=== PATIENT | female | born 1985 | race Caucasian/White ===

== ENCOUNTER 2019-07-12 14:55 | Emergency (ER) | payer OTHER, SELFPAY ==
--- NOTE | ~2019-07-12 | XR_ITS ---
EXAMINATION: XR foot LT 2V DATE: 07/12/2019 15:44 INDICATION: Left foot injury. TECHNIQUE: 2 views of left foot were obtained. COMPARISON: None. FINDINGS: Bone alignment is normal. No fracture. There is mild osteoarthritis of first metatarsophala ngeal joint and some of the midfoot joints. There are enthesophytes at the posterior and plantar aspe cts of calcaneal tuberosity. IMPRESSION: 1. Mild polyarticular osteoarthritis. Reviewed, dictated and finalized at location A. [employer]
[2019-07-12 15:11] VITALS: BP 160/89; PULSE 100; RESP 18; TEMP 36.8; O2SAT 96
--- NOTE | 2019-07-12 16:06 | ED.LOWEXIN ---
HPI - Extremity Injury (Lower) General Chief Complaint: Extremity Injury, Lower Stated Complaint: pain in left foot hurts to walk Source: patient Mode of arrival: ambulatory Limitations: no limitations History of Present Illness HPI Narrative: this is a 33-year-old female that presents after 1 week history of some falling and injuring her left foot. Currently has mild pain when putting weight on her arm on her left foot. There is currently no bruising no swelling has good range of motion. The patient fell approximately 1 week ago had an x-ray order from her primary care physician but decided to come to the emergency department to obtain x-ray of her left foot. No numbness or tingling currently no swelling no redness no bruising. complaint: foot injury and fall Onset (ago): week(s) Injury: Left: foot Type of Injury: unknown Place: home Severity: mild Severity scale (1-10): 4 Relieving factors: NSAID Exacerbating factors: weight bearing Context: fall Other symptoms: none Related Data Home Medications Medication Instructions Recorded Confirmed medroxyprogesterone [Depo-Provera] 150 mg IM [id number] 04/14/19 07/12/19 sertraline [Zoloft] 50 mg PO DAILY 04/14/19 07/12/19 sertraline [Zoloft] 100 mg PO DAILY 04/14/19 07/12/19 trazodone 100 mg PO HS 04/14/19 07/12/19 Allergies Allergy/AdvReac Type Severity Reaction Status Date / Time Penicillins Allergy Hives Verified 04/14/19 18:56 pseudoephedrine AdvReac Nervousness Verified 04/14/19 18:56 [From Sudafed] sumatriptan [From Imitrex] AdvReac Nervousness Verified 04/14/19 18:56 Review of Systems Review of Systems: All systems reviewed & are unremarkable except as noted in HPI and below PMFSH Past Medical History Medical History Pancreatitis Skin infection Social History Social History Gender identity (if verbalized by the patient): Female Exam Const: General: no acute distress and alert Orientation/consciousness: patient oriented x3 HENMT: Head: normal to inspection Eyes: Conjunctivae: conjunctivae normal Pupils: Equal, round and reactive pupils present Neck: Neck: normal visual inspection Chest: Chest palpation & inspection: normal inspection of the chest Resp: Effort & Inspection: normal respiratory effort Cardio: Rate: regular rate Rhythm: regular rhythm GI: GI Palp: Yes Soft to palpation Back/Spine/Pelvis: Back: no CVA tenderness Skin: General skin exam: normal color Rashes: no rashes Neuro: General: patient oriented x3 Extrem: Other: Tenderness in the ball of her left foot with palpation otherwise no swelling no redness no bruising Course Vital Signs Vital signs: Vital Signs Temperature 36.8 C 07/12/19 15:11 Pulse Rate 100 07/12/19 15:11 Respiratory Rate 18 07/12/19 15:11 Blood Pressure 160/89 H 07/12/19 15:11 Pulse Oximetry 96 07/12/19 15:11 Temperature 36.8 C 07/12/19 15:11 Pulse Rate 100 07/12/19 15:11 Respiratory Rate 18 07/12/19 15:11 Blood Pressure 160/89 H 07/12/19 15:11 Pulse Oximetry 96 07/12/19 15:11 Critical Care Time Critical Care Time Critical Care Time: No Discharge Plan Discharge Clinical Impression: Foot sprain Qualifiers: Encounter type: initial encounter Laterality: left Qualified Code(s): S93.602A - Unspecified sprain of left foot, initial encounter Instructions: Foot Sprain (ED) Additional Instructions: Tylenol or Motrin as needed for pain and inflammation and keep follow-up with primary care physician for further evaluation and treatment. Prescriptions: New naproxen 500 mg tablet 500 mg PO BID PRN (Reason: pain) Qty: 20 RF: 0 No Action sertraline [Zoloft] 100 mg Tablet 100 mg PO DAILY RF: 0 trazodone 100 mg Tablet 100 mg PO HS RF: 0 sertraline [Zoloft] 50 mg Tablet 50 mg PO DAILY RF: 0 medroxyproges
[2019-07-12 16:13] VITALS: BP 148/82; PULSE 98; RESP 18; O2SAT 100
== END 2019-07-12 16:19 | disposition home or self-care (01) ==
PROVIDERS: Emergency Provider Emergency Medicine; PCP Family Medicine
DX: S93.602A Unspecified sprain of left foot, initial encounter (principal); W19.XXXA Unspecified fall, initial encounter
CPT/HCPCS: 73620; 99283

== ENCOUNTER 2020-01-21 01:47 | Outpatient (CLI) | payer OTHER, SELFPAY ==
[2020-01-21 18:20] LABS: SARS-CoV-2 RNA PCR Negative
== END 2020-01-21 01:48 | disposition home or self-care (01) ==
LOC: ANHCOVIDDT 01:49
PROVIDERS: PCP Family Medicine; Visit Provider Internal Medicine Gastroenterology
DX: Z01.812 Encounter for preprocedural laboratory examination (principal); Z11.59 Encounter for screening for other viral diseases
CPT/HCPCS: 87635; C9803; U0003

== ENCOUNTER 2020-01-23 01:32 | Day surgery (SDC) | payer OTHER, SELFPAY ==
[2020-01-16 13:18] VITALS: BMI 40.6
[2020-01-23] MEDS: LACTATED RINGERS 1,000 ML 150 ML IV CONT (07:08)
[2020-01-23 07:16] VITALS: BP 143/93; PULSE 78; RESP 20; TEMP 36.3; O2SAT 98; BMI 45.1
--- NOTE | 2020-01-23 07:33 | WPDANESEPPF ---
Anes - Initial Pre Proc Eval Procedure: Operation Date: 01/23/20 08:00 Proposed Procedures p Esophagogastroduodenoscopy & Colonoscopy - Gil Swanson MD Date/Time: 01/23/20 07:33 Surgeon: Gli Swanson MD Pre Op Diagnosis: abdominal pain Patient Data Age: 34 Gender: F Height: 5 ft 11 in Weight: 146.7 kg Last Vital Signs Temp 97.3 F L 01/23/20 07:16 Pulse 78 01/23/20 07:16 Resp 20 01/23/20 07:16 BP 143/93 H 01/23/20 07:16 Pulse Ox 98 01/23/20 07:16 Allergies Allergy/AdvReac Type Severity Reaction Status Date / Time Penicillins Allergy Hives Verified 01/23/20 07:11 pseudoephedrine AdvReac Nervousness Verified 01/23/20 07:11 [From Sudafed] sumatriptan [From Imitrex] AdvReac Nervousness Verified 01/23/20 07:11 Home Medications Medication Instructions Recorded Confirmed Type medroxyprogesterone [Depo-Provera] 150 mg IM [id number] 04/14/19 01/16/20 History sertraline [Zoloft] 50 mg PO DAILY 04/14/19 01/16/20 History sertraline [Zoloft] 100 mg PO DAILY 04/14/19 01/16/20 History trazodone 100 mg PO HS 04/14/19 01/16/20 History naproxen 500 mg PO BID PRN #20 tablet 07/12/19 01/16/20 Rx epinephrine [EpiPen] 0.3 mg IM ONCE PRN 01/16/20 01/16/20 History vbysstoxoukg-[id number]-mcrp-FA-vit K 1 tablet PO DAILY 01/16/20 01/16/20 History [Adults Multivitamin] omeprazole 40 mg PO DAILY 01/16/20 01/16/20 History topiramate [Topamax] 100 mg PO DAILY 01/16/20 01/16/20 History Patient hx anesthesia problems: none Family hx anesthesia problems: none PMFSH Past Medical History Medical History (Updated 12/27/19 @ 11:16 by Gil Swanson MD) Depression Morbidly obese Pancreatitis Skin infection Social History Social History Gender identity (if verbalized by the patient): Female Anes - Eval Final PreProcedure Day of Procedure 01/23/20 07:33 Patient weight: morbidly obese Heart: regular rate and rhythm Lungs: clear to auscultation Airway: Mallampati scale class II Neurological: alert and oriented Last oral intake: >/= 8 hours ASA classification: III Emergent: no Anesthetic plan: proceed Anesthesia type and monitoring: general GIVS and standard monitoring Informed Consent: The patient's anesthetic plan and its attendant risks and benefits were discussed with the patient/family/POA. Questions were solicited and answers provided to the satisfaction of the patient/family/POA.
--- NOTE | 2020-01-23 08:04 | WPDHPUPDATE1 ---
History and Physical Update Update Date/Time: 01/23/20 08:04 History and Physical has been reviewed, including an updated exam of the patient. There are NO changes in the patient's condition. Risks, benefits, and alternatives have been discussed and questions answered. Patient agrees to proceed with procedure.
[2020-01-23 08:45] VITALS: BP 147/73; PULSE 61; RESP 20; O2SAT 98
[2020-01-23 08:55] VITALS: BP 119/82; PULSE 61; RESP 20; O2SAT 100
[2020-01-23 09:05] VITALS: BP 118/84; PULSE 57; RESP 20; O2SAT 100
== END 2020-01-23 09:25 | disposition home or self-care (01) ==
PROVIDERS: PCP Family Medicine; Visit Provider Internal Medicine Gastroenterology
PROC: 0DJ08ZZ Inspection of Upper Intestinal Tract, Via Natural or Artificial Opening Endoscopic (ICD-10-PCS; CPT 43235; principal; 2020-01-23 08:00)
DX: K29.80 Duodenitis without bleeding (principal); K29.50 Unspecified chronic gastritis without bleeding; B96.81 Helicobacter pylori [H. pylori] as the cause of diseases classified elsewhere; D12.5 Benign neoplasm of sigmoid colon; K64.8 Other hemorrhoids; F32.9 Major depressive disorder, single episode, unspecified; E66.01 Morbid (severe) obesity due to excess calories; Z68.42 Body mass index [BMI] 45.0-49.9, adult
CPT/HCPCS: 45385; 43239; 88305; 88342; J2704; J7120

== ENCOUNTER 2021-03-25 19:45 | Emergency (ER) | payer OTHER, SELFPAY ==
[2021-03-25 22:40] VITALS: BP 114/67; PULSE 83; RESP 20; TEMP 36.4; O2SAT 96
--- NOTE | 2021-03-25 23:00 | ED.GENADULT ---
HPI - General Adult General Chief complaint: Headache Stated complaint: migraine, dizziness Source: patient Mode of arrival: ambulatory Limitations: no limitations History of Present Illness HPI narrative: Kelsie is a 35F with a PMH of depression, skin infections, pancreatitis, and migraine headaches that presents to the ED with a headache. She has had a bilateral pounding headache that came on slowly. It is associated with nausea. It is worse with bright lights. She denies vomiting, hearing changes, vision changes and trauma. It feels like her other headaches, just more severe. Related Data Home Medications Medication Instructions Recorded Confirmed medroxyprogesterone [Depo-Provera] 150 mg IM [id number] 04/14/19 03/25/21 sertraline [Zoloft] 200 mg PO DAILY 04/14/19 03/25/21 trazodone 200 mg PO HS 04/14/19 03/25/21 epinephrine [EpiPen] 0.3 mg IM ONCE PRN 01/16/20 03/25/21 atenolol 50 mg PO DAILY 03/25/21 03/25/21 gabapentin 600 mg PO TID 03/25/21 03/25/21 montelukast 10 mg PO DAILY 03/25/21 03/25/21 Allergies Allergy/AdvReac Type Severity Reaction Status Date / Time Penicillins Allergy Hives Verified 02/06/20 13:42 pseudoephedrine AdvReac Nervousness Verified 02/06/20 13:42 [From Sudafed] sumatriptan [From Imitrex] AdvReac Nervousness Verified 02/06/20 13:42 Review of Systems Constitutional: Constitutional: Reports no additional constitutional complaints Eyes: Eyes: Reports no additional eye complaints ENT: Reports as per HPI Cardiovascular: Cardiovascular: Reports no additional cardiovascular complaints Respiratory: Respiratory: Reports no additional respiratory complaints Gastrointestinal: Gastrointestinal: Reports no additional gastrointestinal complaints Genitourinary: Genitourinary: Reports no additional female genitourinary complaints Musculoskeletal: Musculoskeletal: Reports no additional musculoskeletal complaints Integumentary/Breasts: Skin/Breast: Reports system reviewed and no additional complaints, except as docu Neurologic: Reports system reviewed and no additional complaints, except as documented Psychiatric: Psychiatric: Reports no additional psychiatric complaints Endocrine: Endocrine: Reports no additional endocrine complaints Hematologic/Lymphatic: Hematologic/Lymphatic: Reports no additional hematologic/lymphatic complaints Allergic/Immunologic: Allergic/Immunologic: Reports no additional allergic/immunologic complaints [facility] Past Medical History Medical History (Updated 03/26/21 @ 00:00 by Don John) Depression Morbidly obese Pancreatitis Skin infection Social History Social History Gender identity (if verbalized by the patient): Female Exam Const: General: no acute distress and alert Orientation/consciousness: patient oriented x3 Limitations: No altered mental status HENMT: Head: normal to inspection Eyes: Conjunctivae: conjunctivae normal Pupils: Equal, round and reactive pupils present Neck: Neck: normal visual inspection Chest: Chest palpation & inspection: normal inspection of the chest Resp: Effort & Inspection: normal respiratory effort Auscultation: clear to auscultation bilaterally Cardio: Rate: regular rate Rhythm: regular rhythm GI: Inspection: non-distended GI Palp: Yes Soft to palpation, No Tenderness to palpation present (GI) and No Guarding due to palpation present (GI) Skin: General skin exam: normal color Rashes: no rashes Neuro: General: patient oriented x3, moves all extremities, no meningeal signs, no focal motor deficits and CN's II-XI intact bilaterally Cranial nerves: Yes Nystagmus not present Speech: normal speech Other: normal finger to nose and normal rapid alternating movements. Extrem: General: normal to inspection Psych: Mental Status: mental status grossly normal Course Course Emergency Course: Ordered Benadryl, Compazine and IV fluids. This
[2021-03-25] MEDS: SODIUM CHLORIDE 0.9% IV 1,000 ML 999 ML IV CONT (23:19)
[2021-03-25] MEDS: PROCHLORPERAZINE EDISYLATE 10 MG/2 ML VIAL IV PUSH (23:20)
[2021-03-25] MEDS: diphenhydrAMINE HCl INJ 50 MG/ML VIAL IV PUSH (23:20)
[2021-03-25 23:43] VITALS: BP 121/71; PULSE 78; RESP 18; TEMP 36.6; O2SAT 97
== END 2021-03-25 23:47 | disposition home or self-care (01) ==
PROVIDERS: Emergency Provider Family Medicine; PCP Family Medicine
DX: G43.909 Migraine, unspecified, not intractable, without status migrainosus (principal)
CPT/HCPCS: 96374; 96375; 99283; 99284; J0780; J1200; J7030

== ENCOUNTER 2021-06-01 08:51 | Outpatient (CLI) | payer OTHER, SELFPAY ==
--- NOTE | ~2021-06-01 | CT_ITS ---
EXAMINATION: CT abdomen pelvis w con DATE: 06/01/2021 10:05 INDICATION: Lower abdominal pain. TECHNIQUE: Computed tomography (CT) of the abdomen and pelvis was performed with 100 mL Omnipaque-350 intravenous contrast. Automated exposure control and iterative reconstruction technique were employe d. The dose-length product was 1717.65 mGy-cm. COMPARISON: 04/22/2019 FINDINGS: Lung bases are clear. Heart size is normal. No pericardial or pleural effusion. Liver, gallbladder, s pleen, pancreas, bilateral adrenal glands and kidneys are normal. Normal appendix. No abnormal bowel wall thickening or obstruction. Bladder, anteverted uterus and bilateral adnexa are unremarkable. No free intraperitoneal gas or fluid. No pathologically enlarged abdominal or pelvic lymphadenopathy. Ch ronic mild anterior wedging at T11-L1 with mild to moderate spondylosis in the lower thoracic spine. IMPRESSION: 1. No acute intra-abdominal/pelvic process. Reviewed, dictated and finalized at [facility]. [facility]
== END 2021-06-01 08:52 | disposition home or self-care (01) ==
LOC: CHSIMG 08:53
PROVIDERS: PCP Physician Assistant; Visit Provider Physician Assistant
DX: R10.30 Lower abdominal pain, unspecified (principal)
CPT/HCPCS: 74177; Q9967

== ENCOUNTER 2021-08-16 11:46 | Emergency (ER) | payer OTHER, SELFPAY ==
--- NOTE | ~2021-08-16 | XR_ITS ---
EXAMINATION: XR finger 1st RT min 2V DATE: 08/16/2021 12:57 INDICATION: Right thumb pain. TECHNIQUE: 4 views of right thumb were obtained. COMPARISON: None. FINDINGS: Bone alignment is normal. No fracture. There is mild osteoarthritis of first carpometacarpa l joint, metacarpophalangeal joint, and first interphalangeal joint. IMPRESSION: 1. Mild polyarticular osteoarthritis. Reviewed, dictated and finalized at location A. [employer]
[2021-08-16 12:01] LABS: Glucose Point of Care 85 mg/dl (65-105)
[2021-08-16 12:10] VITALS: BP 130/94; PULSE 88; RESP 20; TEMP 36.1; O2SAT 92
--- NOTE | 2021-08-16 12:28 | ED.GENADULT ---
HPI - General Adult General Chief complaint: Extremity Injury, Upper Stated complaint: pain in R thumb and wrist Time Seen by Provider: 08/16/21 11:48 Source: patient and RN notes reviewed Mode of arrival: ambulatory Limitations: no limitations History of Present Illness Onset (ago): week(s) (1) Location: right and upper extremity Radiation: non-radiation Severity: mild Severity scale (1-10): 4 Quality: other (no acute injury.) Pain Consistency: constant Relieving factors: medication Exacerbating factors: movement Associated symptoms: denies other symptoms Treatments prior to arrival: NSAID Related Data Home Medications Medication Instructions Recorded Confirmed medroxyprogesterone [Depo-Provera] 150 mg IM [id number] 04/14/19 03/25/21 sertraline [Zoloft] 200 mg PO DAILY 04/14/19 03/25/21 trazodone 200 mg PO HS 04/14/19 03/25/21 epinephrine [EpiPen] 0.3 mg IM ONCE PRN 01/16/20 03/25/21 atenolol 50 mg PO DAILY 03/25/21 03/25/21 gabapentin 600 mg PO TID 03/25/21 03/25/21 montelukast 10 mg PO DAILY 03/25/21 03/25/21 Allergies Allergy/AdvReac Type Severity Reaction Status Date / Time Penicillins Allergy Hives Verified 02/06/20 13:42 pseudoephedrine AdvReac Nervousness Verified 02/06/20 13:42 [From Sudafed] sumatriptan [From Imitrex] AdvReac Nervousness Verified 02/06/20 13:42 Review of Systems Review of Systems: All systems reviewed & are unremarkable except as noted in HPI and below PMFSH Past Medical History Medical History Depression Morbidly obese Pancreatitis Skin infection Tendonitis of finger Social History Social History Gender identity (if verbalized by the patient): Female Exam Const: General: no acute distress Orientation/consciousness: patient oriented x3 Limitations: no limitations HENMT: Head: normal to inspection Ears: external ears normal, TM's normal bilaterally and EAC's normal General nose exam: Normal external nose present and Normal nares present Face and sinus: sinuses nontender Mouth: Yes moist mucous membranes Eyes: Conjunctivae: conjunctivae normal Pupils: Equal, round and reactive pupils present EOM: EOMs intact bilaterally Neck: Neck: normal visual inspection and no lymphadenopathy Other: supple Chest: Chest palpation & inspection: normal inspection of the chest Resp: Effort & Inspection: normal respiratory effort Auscultation: clear to auscultation bilaterally Cardio: Rate: regular rate Rhythm: regular rhythm GI: GI Palp: Yes Soft to palpation and No Tenderness to palpation present (GI) Auscultation: normal bowel sounds : General: Yes bladder normal to palpation and Yes no CVA tenderness Back/Spine/Pelvis: Back: no CVA tenderness Skin: General skin exam: normal color Rashes: no rashes Neuro: General: patient oriented x3, moves all extremities, no meningeal signs, no focal motor deficits and CN's II-XI intact bilaterally Extrem: General: normal to inspection and no pedal edema Psych: Appearance: grossly normal and well kempt Mental Status: mental status grossly normal Affect: normal affect and Anxious affect present Attitude: cooperative Thought content: Yes Normal thought content present Course Course Emergency Course: Pt was stable in the ED. Reevaluation(s) Reevaluation #1: VSS. Date: 08/16/21 Time: 12:20 Vital Signs Vital signs: Vital Signs Temperature 36.1 C L 08/16/21 12:10 Pulse Rate 88 08/16/21 12:10 Respiratory Rate 20 08/16/21 12:10 Blood Pressure 130/94 H 08/16/21 12:10 Pulse Oximetry 92 08/16/21 12:10 Temperature 36.7 C 08/16/21 13:31 Pulse Rate 66 08/16/21 13:31 Respiratory Rate 20 08/16/21 13:31 Blood Pressure 129/95 H 08/16/21 13:31 Pulse Oximetry 98 08/16/21 13:31 Medical Decision Making Differential Diagnosis Differential Diagnosis: finger tendonitis, sprain. Vital Sig
[2021-08-16] MEDS: IBUPROFEN 400 MG TABLET 800 MG PO (12:37)
[2021-08-16 13:31] VITALS: BP 129/95; PULSE 66; RESP 20; TEMP 36.7; O2SAT 98
== END 2021-08-16 13:41 | disposition home or self-care (01) ==
PROVIDERS: Emergency Provider Emergency Medicine; PCP Physician Assistant
DX: M77.8 Other enthesopathies, not elsewhere classified (principal)
CPT/HCPCS: 73140; 82948; 99283; A4565; A9270

== ENCOUNTER 2022-05-10 19:57 | Emergency (ER) | payer OTHER, SELFPAY ==
--- NOTE | ~2022-05-10 | CT_ITS ---
EXAMINATION: CT lumbar spine wo con DATE: 05/10/2022 23:50 INDICATION: Sacrococcygeal pain. TECHNIQUE: Computed tomography (CT) of the lumbar spine was performed without intravenous contrast. A utomated exposure control and iterative reconstruction technique were employed. The dose-length produ ct was 1828.03 mGy-cm. COMPARISON: CT lumbar spine 01/22/2019 FINDINGS: Bone alignment is normal. There is mild chronic anterior wedging of T11-L1 vertebral bodies . There is mildly decreased disc height at T12-L1 and L4-L5. The following disc levels are specifical ly discussed: L1-L2: The disc does not extend beyond the endplate margin. There is mild bilateral facet joint osteo arthritis. There is no neural foraminal stenosis. There is no central canal stenosis. L2-L3: The disc does not extend beyond the endplate margin. There is mild bilateral facet joint osteo arthritis. There is no neural foraminal stenosis. There is no central canal stenosis. L3-L4: The disc does not extend beyond the endplate margin. There is moderate right and mild left fac et joint osteoarthritis. There is mild right neural foraminal stenosis. There is no central canal jacobo nosis. L4-L5: The disc is bulging. There is mild right facet joint osteoarthritis. There is mild right neura l foraminal stenosis. There is no central canal stenosis. L5-S1: The disc does not extend beyond the endplate margin. There is moderate bilateral facet joint o steoarthritis. There is no neural foraminal stenosis. There is no central canal stenosis. IMPRESSION: 1. No fracture. 2. Mild lumbar spondylosis. Reviewed, dictated and finalized at location A. [employer]
[2022-05-10 20:35] VITALS: BP 118/81; PULSE 87; RESP 18; TEMP 36.6; O2SAT 97
[2022-05-10] MEDS: IBUPROFEN 400 MG TABLET 800 MG PO (22:49)
[2022-05-10 23:26] LABS: Urine Pregnancy Test Negative
[2022-05-10 23:27] LABS: Pregnancy On Board Control Positive
--- NOTE | 2022-05-11 00:32 | ED.BACK ---
HPI - Back Pain/Injury General Chief Complaint: Back Pain/Injury Stated Complaint: injured tail bone Time Seen by Provider: 05/10/22 19:59 Source: patient and RN notes reviewed Mode of arrival: ambulatory Limitations: no limitations History of Present Illness MD elicited complaint: back injury Pertinent past history: prior back pain and recent trauma Onset (ago): day(s) (2) Timing: constant Severity: moderate Pain scale (0-10): 6 Quality: dull and aching Location: sacrum Radiation: buttocks Exacerbating factors: movement and sitting upright Relieving factors: walking Context: fall Associated symptoms: denies other symptoms Treatments prior to arrival: acetaminophen Related Data Home Medications Medication Instructions Recorded Confirmed medroxyprogesterone 150 mg/mL 150 mg IM [id number] 04/14/19 05/10/22 intramuscular suspension (Depo-Provera) sertraline 100 mg tablet (Zoloft) 200 mg PO DAILY 04/14/19 05/10/22 trazodone 100 mg tablet 200 mg PO HS 04/14/19 05/10/22 epinephrine 0.3 mg/0.3 mL 0.3 mg IM ONCE PRN Allergic 01/16/20 05/10/22 injection, auto-injector (EpiPen) Reaction atenolol 50 mg tablet 50 mg PO DAILY 03/25/21 05/10/22 gabapentin 600 mg tablet 600 mg PO TID 03/25/21 05/10/22 montelukast 10 mg tablet 10 mg PO DAILY 03/25/21 05/10/22 Allergies Allergy/AdvReac Type Severity Reaction Status Date / Time Penicillins Allergy Hives Verified 05/10/22 20:54 pseudoephedrine AdvReac Nervousness Verified 05/10/22 20:54 [From Sudafed] sumatriptan [From Imitrex] AdvReac Nervousness Verified 05/10/22 20:54 Review of Systems Review of Systems: All systems reviewed & are unremarkable except as noted in HPI and below Constitutional: Constitutional: Reports no additional constitutional complaints Eyes: Eyes: Reports no additional eye complaints ENT: Reports system reviewed and no additional complaints, except as documented Cardiovascular: Cardiovascular: Reports no additional cardiovascular complaints Respiratory: Respiratory: Reports no additional respiratory complaints Gastrointestinal: Gastrointestinal: Reports no additional gastrointestinal complaints Genitourinary: Genitourinary: Reports no additional female genitourinary complaints Musculoskeletal: Musculoskeletal: Reports no additional musculoskeletal complaints Integumentary/Breasts: Skin/Breast: Reports system reviewed and no additional complaints, except as docu Neurologic: Reports system reviewed and no additional complaints, except as documented Psychiatric: Psychiatric: Reports no additional psychiatric complaints Endocrine: Endocrine: Reports no additional endocrine complaints Hematologic/Lymphatic: Hematologic/Lymphatic: Reports no additional hematologic/lymphatic complaints Allergic/Immunologic: Allergic/Immunologic: Reports no additional allergic/immunologic complaints PMFSH Past Medical History Medical History Coccyx contusion Depression Morbidly obese Pancreatitis Skin infection Tendonitis of finger Social History Social History Gender identity (if verbalized by the patient): Female Exam Const: General: healthy appearing, no acute distress and well nourished Nutritional Appearance: well nourished Orientation/consciousness: patient oriented x3 Limitations: no limitations HENMT: Head: normal to inspection Ears: external ears normal, TM's normal bilaterally and EAC's normal Face/Nose/Sinus: Normal external nose present, Normal nares present, normal facial exam and sinuses nontender Face and sinus: normal facial exam and sinuses nontender Mouth: Yes Normal oral and palatal mucosa present and Yes moist mucous membranes Teeth and gingiva: dentition normal Throat: posterior oropharynx normal Eyes: Conjunctivae: conjunctivae normal Pupils: Equal, round and reactive pupils present EOM: EOMs intact bilat
[2022-05-11 00:44] VITALS: BP 143/86; PULSE 70; RESP 14; O2SAT 96
[2022-05-11 00:58] VITALS: BP 127/90; PULSE 70; RESP 16; TEMP 36.8; O2SAT 96
== END 2022-05-11 01:04 | disposition home or self-care (01) ==
PROVIDERS: Emergency Provider Emergency Medicine; PCP Family Medicine
DX: S30.0XXA Contusion of lower back and pelvis, initial encounter (principal)
CPT/HCPCS: 72131; 81025; 99284; A9270

== ENCOUNTER 2022-05-22 17:12 | Emergency (ER) | payer OTHER, SELFPAY ==
[2022-05-22 17:21] VITALS: BP 155/57; PULSE 88; TEMP 36.4; O2SAT 98
[2022-05-22 17:24] VITALS: BP 155/57; PULSE 84; RESP 18; TEMP 36.4; O2SAT 97
[2022-05-22] MEDS: KETOROLAC (*BKC) 60 MG/2 ML VIAL IM (17:37)
[2022-05-22] MEDS: ORPHENADRINE CITRATE 30 MG/ML 2 ML VIAL 60 MG IM (17:38)
--- NOTE | 2022-05-22 17:38 | ED.BACK ---
HPI - Back Pain/Injury General Chief Complaint: Back Pain/Injury Stated Complaint: Low back pain hard to walk Time Seen by Provider: 05/22/22 17:15 Source: patient Mode of arrival: ambulatory Limitations: no limitations History of Present Illness HPI Narrative: This is a 36-year-old female that presents with lower back pain without radiation of her pain started earlier today after she was doing some heavy lifting, lifting heavy boxes there is no dysuria no hematuria no flank pain no fever chills. MD elicited complaint: back pain Onset (ago): hour(s) Timing: constant Severity: moderate Pain scale (0-10): 6 Quality: sharp and aching Related Data Home Medications Medication Instructions Recorded Confirmed medroxyprogesterone 150 mg/mL 150 mg IM [id number] 04/14/19 05/22/22 intramuscular suspension (Depo-Provera) sertraline 100 mg tablet (Zoloft) 200 mg PO DAILY 04/14/19 05/22/22 epinephrine 0.3 mg/0.3 mL 0.3 mg IM ONCE PRN Allergic 01/16/20 05/22/22 injection, auto-injector (EpiPen) Reaction atenolol 50 mg tablet 50 mg PO DAILY 03/25/21 05/22/22 gabapentin 600 mg tablet 600 mg PO TID 03/25/21 05/22/22 montelukast 10 mg tablet 10 mg PO DAILY 03/25/21 05/22/22 bupropion HCl 300 mg 24 hr tablet, 30 mg PO DAILY 05/22/22 05/22/22 extended release buspirone 30 mg tablet 30 mg PO DAILY 05/22/22 05/22/22 citalopram 10 mg tablet 10 mg PO DAILY 05/22/22 05/22/22 Allergies Allergy/AdvReac Type Severity Reaction Status Date / Time Penicillins Allergy Hives Verified 05/22/22 17:28 pseudoephedrine AdvReac Nervousness Verified 05/22/22 17:28 [From Sudafed] sumatriptan [From Imitrex] AdvReac Nervousness Verified 05/22/22 17:28 Review of Systems Review of Systems: All systems reviewed & are unremarkable except as noted in HPI and below PMFSH Past Medical History Medical History Coccyx contusion Depression Morbidly obese Pancreatitis Skin infection Tendonitis of finger Social History Social History Gender identity (if verbalized by the patient): Female Exam Const: General: healthy appearing Nutritional Appearance: well nourished Limitations: no limitations HENMT: Head: normal to inspection Mouth: Yes Normal oral and palatal mucosa present Eyes: Conjunctivae: conjunctivae normal Pupils: Equal, round and reactive pupils present EOM: EOMs intact bilaterally Neck: Neck: normal visual inspection, no lymphadenopathy and no meningeal signs Chest: Chest palpation & inspection: normal inspection of the chest Resp: Effort & Inspection: normal respiratory effort Auscultation: clear to auscultation bilaterally Cardio: Rate: regular rate Rhythm: regular rhythm GI: GI Palp: Yes Soft to palpation Auscultation: normal bowel sounds : General: Yes bladder normal to palpation Urinary Catheter: Urinary Catheter: patent and draining Back/Spine/Pelvis: Back: no CVA tenderness Skin: General skin exam: normal color Rashes: no rashes Wounds: no wounds Neuro: General: patient oriented x3, moves all extremities, no meningeal signs and no focal motor deficits Extrem: General: normal to inspection and no clubbing, cyanosis or edema Psych: Mental Status: mental status grossly normal Affect: normal affect Course Course Emergency Course: Reassessment patient back pain has improved after dose of muscle relaxer and Toradol Vital Signs Vital signs: Vital Signs Temperature 36.4 C 05/22/22 17:21 Pulse Rate 88 05/22/22 17:21 Blood Pressure 155/57 H 05/22/22 17:21 Pulse Oximetry 98 05/22/22 17:21 Oxygen Delivery Room Air 05/22/22 17:21 Temperature 36.4 C 05/22/22 17:24 Pulse Rate 84 05/22/22 17:24 Respiratory Rate 18 05/22/22 17:24 Blood Pressure 155/57 H 05/22/22 17:24 Pulse Oximetry 97 05/22/22 17:24 Oxygen Delivery Room Air 05/22/22 17:24 Critic
[2022-05-22 18:03] VITALS: BP 155/57; PULSE 84; RESP 18; TEMP 36.4; O2SAT 97
== END 2022-05-22 18:05 | disposition home or self-care (01) ==
PROVIDERS: Emergency Provider Emergency Medicine; PCP Family Medicine
DX: S39.012A Strain of muscle, fascia and tendon of lower back, initial encounter (principal); X50.0XXA Overexertion from strenuous movement or load, initial encounter
CPT/HCPCS: 96372; 99284; J1885; J2360

== ENCOUNTER 2022-07-09 16:28 | Emergency (ER) | payer OTHER, SELFPAY ==
--- NOTE | 2022-07-09 16:31 | ED.EXTPRO ---
HPI - Extremity Problem General Chief complaint: Extremity Problem,Nontraumatic Stated complaint: shoulder pain Time Seen by Provider: 07/09/22 16:29 Source: patient and RN notes reviewed Mode of arrival: ambulatory Limitations: no limitations History of Present Illness HPI Narrative: patient states that she started having some right shoulder pain about 2 days ago. She thinks she might have slept wrong on it. But it hurts when she does range of motion. She took 800 mg of Motrin did not seem to help. Complaint: extremity pain Onset (ago): day(s) (2) Pain Consistency: constant Location: right and upper extremity ( shoulder) Quality: aching and dull Radiation: none Relieving factors: rest Exacerbating factors: range of motion Associated symptoms: denies other symptoms Related Data Home Medications Medication Instructions Recorded Confirmed medroxyprogesterone 150 mg/mL 150 mg IM [id number] 04/14/19 07/09/22 intramuscular suspension (Depo-Provera) epinephrine 0.3 mg/0.3 mL 0.3 mg IM ONCE PRN Allergic 01/16/20 07/09/22 injection, auto-injector (EpiPen) Reaction atenolol 50 mg tablet 50 mg PO DAILY 03/25/21 05/22/22 gabapentin 600 mg tablet 600 mg PO TID 03/25/21 07/09/22 bupropion HCl 300 mg 24 hr tablet, 30 mg PO DAILY 05/22/22 05/22/22 extended release citalopram 10 mg tablet 10 mg PO DAILY 05/22/22 07/09/22 Allergies Allergy/AdvReac Type Severity Reaction Status Date / Time Penicillins Allergy Hives Verified 05/22/22 17:28 pseudoephedrine AdvReac Nervousness Verified 05/22/22 17:28 [From Sudafed] sumatriptan [From Imitrex] AdvReac Nervousness Verified 05/22/22 17:28 Review of Systems Review of Systems: All systems reviewed & are unremarkable except as noted in HPI and below PMFSH Past Medical History Medical History Coccyx contusion Depression Morbidly obese Pancreatitis Skin infection Tendonitis of finger Social History Social History (Updated 07/09/22 @ 16:32 by Aime Mcdaniel MD) Smoking status: Never smoker Gender identity (if verbalized by the patient): Female Exam Const: General: healthy appearing, no acute distress and alert Nutritional Appearance: well nourished and obese morbidly obese Orientation/consciousness: patient oriented x3 Limitations: no limitations Other: Female tech in room during examination. HENMT: Head: normal to inspection Ears: external ears normal Eyes: Conjunctivae: conjunctivae normal Pupils: Equal, round and reactive pupils present EOM: EOMs intact bilaterally Neck: Neck: normal visual inspection Resp: Effort & Inspection: normal respiratory effort Auscultation: clear to auscultation bilaterally Cardio: Rate: regular rate Rhythm: regular rhythm GI: GI Palp: Yes Soft to palpation and No Tenderness to palpation present (GI) Auscultation: normal bowel sounds Back/Spine/Pelvis: Cervical Spine: cervical ROM normal Thoracic/Lumbar Spine: thoraco-lumbar ROM normal Skin: General skin exam: normal color Rashes: no rashes Neuro: General: patient oriented x3, moves all extremities, no focal motor deficits and CN's II-XI intact bilaterally Speech: normal speech Gait exam (Neuro): Normal gait present Extrem: General: normal exam except as noted and no clubbing, cyanosis or edema Right upper extremity: shoulder/upper arm tenderness over the subacromial bursa ( Moderate); not of the A-C joint and not of the proximal humerus and abnormal ROM pain with active ROM in ABduction and in flexion; no pain with passive ROM Psych: Appearance: disheveled Mental Status: mental status grossly normal Affect: normal affect Attitude: cooperative Course Course Emergency Course: I discussed the diagnosis with the patient and offered her a injection into her subacromial bursa and she declined. She asked me for opiates for this pain and I told her absolutely not that opiates are not indicated for bu
[2022-07-09 16:39] VITALS: BP 114/71; PULSE 78; RESP 14; TEMP 36.3; O2SAT 98
--- NOTE | 2022-07-09 16:42 | PC.NURSE ---
In room with Dr. Mcdaniel during physical exam
== END 2022-07-09 16:52 | disposition home or self-care (01) ==
LOC: CHSED 16:45
PROVIDERS: Emergency Provider Emergency Medicine; PCP Family Medicine
DX: M75.51 Bursitis of right shoulder (principal)
CPT/HCPCS: 99283

== ENCOUNTER 2022-08-14 08:25 | Outpatient (CLI) | payer OTHER, SELFPAY | END 2022-08-14 08:26 | disposition home or self-care (01) | LOC: CHSIMG 08:26 | PROVIDERS: PCP Physician Assistant; Visit Provider Physician Assistant | DX: R51.9 Headache, unspecified (principal) | CPT/HCPCS: 99199 ==

== ENCOUNTER 2022-08-23 17:05 | Emergency (ER) | payer OTHER, SELFPAY ==
[2022-08-23 17:07] VITALS: BP 137/75; PULSE 74; RESP 18; TEMP 36.4; O2SAT 99
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
--- NOTE | 2022-08-23 17:14 | PC.NURSE ---
ER provider at pt bedside for evaluation and plan of care.
[2022-08-23 17:45] LABS: Basophils Absolute Auto 0.04 K/mm3 (0.00-0.10); Basophils Percent Auto 0.5 % (0.0-1.0); Eosinophils Absolute Auto 0.16 K/mm3 (0.02-0.50); Eosinophils Percent Auto 1.9 % (1.0-6.0); Hematocrit 39.1 % (35.0-49.0); Hemoglobin 12.5 g/dL (12.0-15.0); Immature Granulocyte Absolute 0.04 K/mm3 (0.00-0.00); Immature Granulocyte Percent A 0.5 % (0.0-0.0); Lymphocytes Percent Auto 23.6 % (18.0-42.0); Mean Corpuscular Hemoglobin 28.5 pg (27.0-31.0); Mean Corpuscular Volume 89.1 fL (78.0-102.0); Mean Platelet Volume 8.1 fl (9.2-11.8); Monocytes Absolute Auto 0.79 K/mm3 (0.10-0.90); Monocytes Percent Auto 9.3 % (2.0-11.0); Neutrophils Absolute Auto 5.5 K/mm3 (1.7-7.2); Neutrophils Percent Auto 64.2 % (50.0-70.0); Platelet Count Result 402 K/mm3 (150-420); Red Blood Count 4.39 M/mm3 (4.20-5.40); Red Cell Distribution Width 14.6 % (11.6-14.4); White Blood Count 8.5 K/mm3 (4.8-10.8)
[2022-08-23 18:01] LABS: Prothrombin Time 10.9 Seconds (9.50-12.10)
[2022-08-23 18:08] LABS: Lactic Acid Reflex 1.1 mmol/L (0.4-2.0)
[2022-08-23 18:11] LABS: Alanine Aminotransferase 14 U/L (14-59); Albumin Level 3.4 g/dL (3.4-5.0); Alkaline Phosphatase 66 U/L (46-116); Anion Gap 8 mmol/L (8-16); Aspartate Amino Transferase 14 U/L (15-37); Bilirubin,Total 0.1 mg/dL (0.00-1.00); Blood Urea Nitrogen 10 mg/dL (7-18); Calcium 8.9 mg/dL (8.5-10.1); Carbon Dioxide 29 mmol/L (21-32); Chloride 105 mmol/L (98-108); Estimated CRCL calculation 109 ml/min; Estimated Glomerular Filt Rate 59; Glucose 87 mg/dL (70-99); Lipase 17 U/L (16-77); Osmolality Calculated 292 mOsm/kg (285-295); Potassium 3.1 mmol/L (3.5-5.1); Sodium 142 mmol/L (136-145); Total Protein 7.5 g/dL (6.4-8.2); Troponin I 4.6 ng/L (0.00-60.4)
[2022-08-23 18:20] LABS: Appearance Urine Clear (Clear); Bilirubin Urine Negative (Negative); Blood Urine Trace-Intact (Negative); Color Urine Light Yellow (Yellow); Glucose Urine UA Negative (Negative); Ketones Urine Negative (Negative); Leukocyte Esterase Ur 1+ LEU/UL (Negative); Nitrate Urine Negative (Negative); Protein Urine Negative (Negative); Urobilinogen Urine 0.2 mg/dL (0.2-1.0)
[2022-08-23 18:23] LABS: Pregnancy On Board Control Positive; Urine Pregnancy Test Negative
[2022-08-23 18:27] LABS: Add Urine Microscopic? YES; Bacteria Urine 1+ /hpf; RBC Urine 0-2 /hpf (0-2); Squamous Epithelial Cell Urine Moderate /hpf (Few)
[2022-08-23] MEDS: POTASSIUM CHLORIDE 20 MEQ TABLET PO (19:30)
[2022-08-23] MEDS: HYDROcodone/acetaminophen (*CRX) 5-325 MG TABLET 1 TAB PO (19:30)
[2022-08-23] MEDS: CIPROFLOXACIN 500 MG TAB (19:38)
[2022-08-23 19:40] VITALS: BP 119/91; PULSE 68; RESP 18; TEMP 36.8; O2SAT 99
--- NOTE | 2022-08-25 12:08 | PC.NURSE ---
FINAL URINE RESULTS: NO GROWTH. NO ACTION NEEDED.
== END 2022-08-23 19:50 | disposition home or self-care (01) ==
PROVIDERS: Emergency Provider Internal Medicine Critical Care Medicine; PCP Family Medicine
DX: N39.0 Urinary tract infection, site not specified (principal); R10.31 Right lower quadrant pain; G89.29 Other chronic pain
CPT/HCPCS: 36415; 80053; 81001; 81025; 83605; 83690; 84484; 85025; 85610; 87086; 99283; A9270

== ENCOUNTER 2022-09-07 12:26 | Outpatient (CLI) | payer OTHER, SELFPAY ==
--- NOTE | ~2022-09-07 | CT_ITS ---
EXAMINATION: CT brain wo con DATE: 09/07/2022 13:04 INDICATION: Frequent headaches, posterior to frontal area. No known injury. TECHNIQUE: Computed tomography (CT) of the head was performed without intravenous contrast. The mA wa s adjusted according to patient size. Iterative reconstruction technique was employed. Exam dose: 60 5.33 mGy-cm total exam DLP. COMPARISON: None FINDINGS: No intracranial mass lesion or hemorrhage or cerebrovascular accident. No midline shift or mass effect effect. Normal ventricular size. Normal byrnes-white matter differentiation. No subdural or epidural hematoma. Prominent polyp or mucous retention cyst of the right maxillary sinus. The paranasal sinuses and mast oid air cells are otherwise unremarkable. No fracture or bone destruction of the cranial vault. IMPRESSION: No skull fracture or intracranial abnormality Prominent polyp or mucous retention cyst of right maxillary sinus Reviewed, dictated and finalized at [facility] Reviewed, dictated and finalized at [facility].
== END 2022-09-07 12:27 | disposition home or self-care (01) ==
LOC: CHSIMG 12:27
PROVIDERS: PCP Family Medicine; Visit Provider Physician Assistant
DX: R51.9 Headache, unspecified (principal)
CPT/HCPCS: 70450

== ENCOUNTER 2022-10-17 11:31 | Emergency (ER) | payer OTHER, SELFPAY ==
[2022-10-17 11:35] VITALS: BP 132/80; PULSE 91; RESP 20; TEMP 36.6; O2SAT 97
--- NOTE | 2022-10-17 11:45 | ED.GENADULT ---
HPI - General Adult General Chief complaint: Skin/Abscess/Foreign Body Stated complaint: left side boil under arm Time Seen by Provider: 10/17/22 11:38 History of Present Illness HPI narrative: Kelsie is a 37F with a PMH of mood disorder, morbid obesity and frequent skin infections that presented to the ED with a boil in her left armpit. She first noticed it a few days ago and it has become worse. OTC meds do not help with pain. No fevers or systemic symptoms. Related Data Home Medications Medication Instructions Recorded Confirmed epinephrine 0.3 mg/0.3 mL 0.3 mg IM ONCE PRN Allergic 01/16/20 10/17/22 injection, auto-injector (EpiPen) Reaction atenolol 50 mg tablet 50 mg PO DAILY 03/25/21 10/17/22 gabapentin 600 mg tablet 600 mg PO TID 03/25/21 10/17/22 bupropion HCl 300 mg 24 hr tablet, 30 mg PO DAILY 05/22/22 10/17/22 extended release Nexplanon subdermal 08/23/22 buspirone 30 mg tablet 30 mg PO BID 10/17/22 10/17/22 citalopram 40 mg tablet 40 mg PO DAILY 10/17/22 10/17/22 hydroxyzine HCl 50 mg tablet 50 mg PO TID 10/17/22 10/17/22 Allergies Allergy/AdvReac Type Severity Reaction Status Date / Time Penicillins Allergy Hives Verified 10/17/22 11:45 pseudoephedrine AdvReac Nervousness Verified 10/17/22 11:45 [From Sudafed] sumatriptan [From Imitrex] AdvReac Nervousness Verified 10/17/22 11:45 Review of Systems Review of Systems: All systems reviewed & are unremarkable except as noted in HPI and below PMFSH Past Medical History Medical History Chronic abdominal pain Coccyx contusion Colonic polyp Depression Morbidly obese Normal esophagogastroduodenoscopy (EGD) Pancreatitis Skin infection Tendonitis of finger Social History Social History Smoking status: Never smoker Gender identity (if verbalized by the patient): Female Exam Const: General: healthy appearing and no acute distress Nutritional Appearance: well nourished Orientation/consciousness: patient oriented x3 Limitations: no limitations HENMT: Head: normal to inspection Ears: external ears normal Face/Nose/Sinus: Normal external nose present Eyes: Conjunctivae: conjunctivae normal Pupils: Equal, round and reactive pupils present EOM: EOMs intact bilaterally Neck: Neck: normal visual inspection Chest: Chest palpation & inspection: normal inspection of the chest Resp: Effort & Inspection: normal respiratory effort Cardio: Rate: regular rate Back/Spine/Pelvis: Back: no CVA tenderness Skin: Other: 2 cm tender nodule in the left axilla with induration and fluctuance Neuro: General: patient oriented x3 and moves all extremities Extrem: General: normal to inspection Psych: Mental Status: mental status grossly normal Procedures Abscess I/D other: Date of Incision: 10/17/22 Side (if applicable): left Local Anesthetic: lidocaine 1% and with epi Amount of anesthesia used (mL): 1.5 Technique: incised with #11 blade Amount of fluid expressed (mL): 1 Packing used?: none I&D Results: Pus and Blood Abcess I&D Additional Comments: left axilla incised as above Discharge Plan Discharge Clinical Impression: Abscess Patient Disposition: Home, Self-Care Condition: Stable Instructions: Abscess (ED) Prescriptions: New sulfamethoxazole-trimethoprim [Bactrim DS] 800-160 mg tablet 1 tablet PO Q12H Qty: 10 0RF No Action gabapentin 600 mg tablet 600 mg PO TID atenolol 50 mg tablet 50 mg PO DAILY bupropion HCl 300 mg tablet extended release 24 hr 30 mg PO DAILY citalopram 40 mg tablet 40 mg PO DAILY hydroxyzine HCl 50 mg tablet 50 mg PO TID buspirone 30 mg tablet 30 mg PO BID Nexplanon subdermal epinephrine [EpiPen] 0.3 mg/0.3 mL Auto-Injector 0.3 mg IM ONCE PRN (Reason
[2022-10-17] MEDS: LIDO 1%/EPINEPHRINE 1:100,000 20 ML VIAL INFILTRATE (11:56)
[2022-10-17] MEDS: SULFAMETHOXAZOLE/TRIMETHOPRIM 800/160 MG DS TABLET 1 TAB PO (11:56)
== END 2022-10-17 12:15 | disposition home or self-care (01) ==
PROVIDERS: Emergency Provider Family Medicine; PCP Family Medicine
DX: L02.412 Cutaneous abscess of left axilla (principal); F41.9 Anxiety disorder, unspecified
CPT/HCPCS: 10060; 99283; A9270

== ENCOUNTER 2022-10-23 19:12 | Emergency (ER) | payer OTHER, SELFPAY ==
[2022-10-23 19:13] VITALS: BP 122/86; PULSE 89; O2SAT 99
--- NOTE | 2022-10-23 19:20 | ED.WOUNDLAC ---
HPI - Wound/Laceration General Stated Complaint: Boil Source: patient Mode of arrival: ambulatory Limitations: no limitations History of Present Illness HPI narrative: this is a 37-year-old female with some history of abscess under her left axilla was seen in the emergency department 2 to 3 days ago and had it lanced and drained was started on antibiotic, followed up with her primary and advised her to take some pain medication currently is going to have a GI procedure and is unable to take NSAIDs. Currently she is here because of pain and discomfort the area under the left axilla is nonfluctuant with no drainage no fever chills no shortness of breath. Onset (ago): day(s) Location: other Extremity Location: Left: arm ( Red area under the left axilla) Place: home Related Data Home Medications Medication Instructions Recorded Confirmed epinephrine 0.3 mg/0.3 mL 0.3 mg IM ONCE PRN Allergic 01/16/20 10/17/22 injection, auto-injector (EpiPen) Reaction atenolol 50 mg tablet 50 mg PO DAILY 03/25/21 10/17/22 gabapentin 600 mg tablet 600 mg PO TID 03/25/21 10/17/22 bupropion HCl 300 mg 24 hr tablet, 30 mg PO DAILY 05/22/22 10/17/22 extended release Nexplanon subdermal 08/23/22 buspirone 30 mg tablet 30 mg PO BID 10/17/22 10/17/22 citalopram 40 mg tablet 40 mg PO DAILY 10/17/22 10/17/22 hydroxyzine HCl 50 mg tablet 50 mg PO TID 10/17/22 10/17/22 Allergies Allergy/AdvReac Type Severity Reaction Status Date / Time Penicillins Allergy Hives Verified 10/17/22 11:45 pseudoephedrine AdvReac Nervousness Verified 10/17/22 11:45 [From Sudafed] sumatriptan [From Imitrex] AdvReac Nervousness Verified 10/17/22 11:45 Review of Systems Review of Systems: All systems reviewed & are unremarkable except as noted in HPI and below PMFSH Past Medical History Medical History Chronic abdominal pain Coccyx contusion Colonic polyp Depression Morbidly obese Normal esophagogastroduodenoscopy (EGD) Pancreatitis Skin infection Tendonitis of finger Social History Social History Smoking status: Never smoker Gender identity (if verbalized by the patient): Female Exam Const: General: healthy appearing Nutritional Appearance: well nourished Orientation/consciousness: patient oriented x3 Limitations: no limitations HENMT: Head: normal to inspection Ears: external ears normal Eyes: Conjunctivae: conjunctivae normal Pupils: Equal, round and reactive pupils present Neck: Neck: normal visual inspection Chest: Chest palpation & inspection: normal inspection of the chest Resp: Effort & Inspection: normal respiratory effort Auscultation: clear to auscultation bilaterally Cardio: Rate: regular rate Rhythm: regular rhythm GI: GI Palp: Yes Soft to palpation Skin: Other: Redness and nonfluctuant area with no drainage under her left axilla Neuro: General: patient oriented x3 Cranial nerves: Yes Nystagmus not present Extrem: General: normal to inspection Psych: Mental Status: mental status grossly normal Affect: normal affect Course Course Emergency Course: patient having a GI proceed and advised not to take any NSAIDs, will send patient home with a prescription for pain medication and advised patient to continue with her current antibiotics. Vital Signs Vital signs: Vital Signs Pulse Rate 89 10/23/22 19:13 Blood Pressure 122/86 10/23/22 19:13 Pulse Oximetry 99 10/23/22 19:13 Oxygen Delivery Room Air 10/23/22 19:13 Pulse Rate 89 10/23/22 19:13 Blood Pressure 122/86 10/23/22 19:13 Pulse Oximetry 99 10/23/22 19:13 Oxygen Delivery Room Air 10/23/22 19:13 Critical Care Time Critical Care Time Critical Care Time: No Discharge Plan Discharge Clinical Impression: Skin infection Patient Disposition: Home, Self-Care Condition: Stable Instruction
--- NOTE | 2022-10-24 09:00 | PC.NURSE ---
[facility] called and states they canceled the prescription that was escribed to them and state it was already filled in [place] yesterday for the same medication. They state they no longer will fill narcotics for this patient at their location.
== END 2022-10-23 19:43 | disposition home or self-care (01) ==
PROVIDERS: Emergency Provider Emergency Medicine; PCP Family Medicine
DX: L08.89 Other specified local infections of the skin and subcutaneous tissue (principal)
CPT/HCPCS: 99283

== ENCOUNTER 2023-04-21 08:53 | Outpatient (CLI) | payer OTHER, SELFPAY ==
--- NOTE | ~2023-04-21 | CT_ITS ---
EXAMINATION: CT abdomen pelvis wo con DATE: 04/21/2023 09:17 INDICATION: Right flank pain TECHNIQUE: Computed tomography (CT) of the abdomen and pelvis was performed without intravenous contr ast. The dose-length product (DLP) was 1679.97 mGy-cm. Automated exposure control and iterative recon struction technique were employed. COMPARISON: 06/01/2021 FINDINGS: Minimal dependent atelectasis is present in the lung bases. The heart size is normal. The l iver, spleen, pancreas, gallbladder, and adrenal glands are normal. The kidneys are unremarkable. No stones are identified in the kidneys, ureters, or bladder. No hydronephrosis or hydroureter. The appe ndix is normal. No pathologically enlarged abdominal or pelvic lymph nodes are identified. No free in traperitoneal gas or evidence of bowel obstruction. There is mild anterior wedging of lower thoracic and upper lumbar vertebral bodies, likely physiologic. IMPRESSION: 1. No CT correlate for the patient's symptoms. Reviewed, dictated and finalized at [facility] [employer]ING MAINTENA[employer]CE TECHNICIAN
== END 2023-04-21 08:54 | disposition home or self-care (01) ==
LOC: CHSIMG 08:54
PROVIDERS: PCP Family Medicine; Visit Provider Physician Assistant
DX: R10.9 Unspecified abdominal pain (principal)
CPT/HCPCS: 74176

== ENCOUNTER 2023-07-17 13:33 | Emergency (ER) | payer OTHER, SELFPAY ==
--- NOTE | 2023-07-17 13:39 | ED.BACK ---
HPI - Back Pain/Injury General Chief Complaint: Back Pain/Injury Stated Complaint: lower back pain Time Seen by Provider: 07/17/23 13:34 Source: patient Mode of arrival: ambulatory Limitations: no limitations History of Present Illness HPI Narrative: patient is a 37-year-old female with bilateral lower lumbar pain the past few days. No injury. She has been drinking lots of water. No history of kidney stones. MD elicited complaint: back pain Onset (ago): day(s) (3) Timing: constant Severity: moderate Pain scale (0-10): 5 Similar Symptoms Previously: No Quality: sharp Location: lumbar spine Radiation: none Exacerbating factors: movement Relieving factors: immobilization Context: turning/twisting and bending Associated symptoms: denies other symptoms Work related injury: No Related Data Home Medications Medication Instructions Recorded Confirmed epinephrine 0.3 mg/0.3 mL 0.3 mg IM ONCE PRN Allergic 01/16/20 10/17/22 injection, auto-injector (EpiPen) Reaction atenolol 50 mg tablet 50 mg PO DAILY 03/25/21 10/17/22 gabapentin 600 mg tablet 600 mg PO TID 03/25/21 10/17/22 bupropion HCl 300 mg 24 hr tablet, 30 mg PO DAILY 05/22/22 10/17/22 extended release Nexplanon subdermal 08/23/22 buspirone 30 mg tablet 30 mg PO BID 10/17/22 10/17/22 citalopram 40 mg tablet 40 mg PO DAILY 10/17/22 10/17/22 hydroxyzine HCl 50 mg tablet 50 mg PO TID 10/17/22 10/17/22 Allergies Allergy/AdvReac Type Severity Reaction Status Date / Time Penicillins Allergy Hives Verified 10/17/22 11:45 nitrofurantoin AdvReac Unknown Verified 10/23/22 19:31 [From Macrobid] pseudoephedrine AdvReac Nervousness Verified 10/17/22 11:45 [From Sudafed] sumatriptan [From Imitrex] AdvReac Nervousness Verified 10/17/22 11:45 Review of Systems Review of Systems: All systems reviewed & are unremarkable except as noted in HPI and below Constitutional: Constitutional: Reports no additional constitutional complaints Eyes: Eyes: Reports no additional eye complaints ENT: Reports system reviewed and no additional complaints, except as documented Cardiovascular: Cardiovascular: Reports no additional cardiovascular complaints Respiratory: Respiratory: Reports no additional respiratory complaints Gastrointestinal: Gastrointestinal: Reports no additional gastrointestinal complaints Genitourinary: Genitourinary: Reports no additional female genitourinary complaints Musculoskeletal: Musculoskeletal: Reports no additional musculoskeletal complaints Integumentary/Breasts: Skin/Breast: Reports system reviewed and no additional complaints, except as docu Neurologic: Reports system reviewed and no additional complaints, except as documented Psychiatric: Psychiatric: Reports no additional psychiatric complaints Endocrine: Endocrine: Reports no additional endocrine complaints Hematologic/Lymphatic: Hematologic/Lymphatic: Reports no additional hematologic/lymphatic complaints Allergic/Immunologic: Allergic/Immunologic: Reports no additional allergic/immunologic complaints PMFSH Past Medical History Medical History Chronic abdominal pain Coccyx contusion Colonic polyp Depression Morbidly obese Normal esophagogastroduodenoscopy (EGD) Pancreatitis Skin infection Tendonitis of finger Social History Social History Smoking status: Never smoker Gender identity (if verbalized by the patient): Female Exam Const: General: healthy appearing Nutritional Appearance: well nourished Orientation/consciousness: patient oriented x3 HENMT: Head: normal to inspection Ears: external ears normal Face/Nose/Sinus: Normal external nose present Eyes: Conjunctivae: conjunctivae normal Pupils: Equal, round and reactive pupils present EOM: EOMs intact bilaterally Neck: Neck: normal visual inspection Chest: Chest palpation & inspection: nor
[2023-07-17 13:40] VITALS: BP 174/90; PULSE 96; RESP 20; TEMP 36.7; O2SAT 96
[2023-07-17 13:51] LABS: Appearance Urine Clear (Clear); Bilirubin Urine Negative (Negative); Blood Urine Trace-Intact (Negative); Color Urine Light Yellow (Yellow); Glucose Urine UA Negative (Negative); Ketones Urine Negative (Negative); Leukocyte Esterase Ur Negative LEU/UL (Negative); Nitrate Urine Negative (Negative); Protein Urine Negative (Negative); Specific Grav Ur <= 1.005 (1.010-1.020); Urobilinogen Urine 0.2 mg/dL (0.2-1.0)
[2023-07-17 13:56] LABS: Add Urine Microscopic? YES; RBC Urine None seen /hpf (0-2)
[2023-07-17 13:57] LABS: Pregnancy On Board Control Positive; Urine Pregnancy Test Negative
[2023-07-17 14:23] VITALS: BP 176/96; PULSE 101; RESP 20; O2SAT 98
== END 2023-07-17 14:26 | disposition home or self-care (01) ==
PROVIDERS: Emergency Provider Emergency Medicine; PCP Physician Assistant
DX: S39.012A Strain of muscle, fascia and tendon of lower back, initial encounter (principal); X58.XXXA Exposure to other specified factors, initial encounter
CPT/HCPCS: 81001; 81025; 99283

== ENCOUNTER 2023-08-24 08:44 | Outpatient (CLI) | payer OTHER, SELFPAY ==
--- NOTE | ~2023-08-24 | XR_ITS ---
EXAMINATION: XR foot RT min 3V DATE: 08/24/2023 08:59 INDICATION: Medial arch pain at the right foot TECHNIQUE: Dorsoplantar, two oblique and lateral views of the right foot were obtained. COMPARISON: None. FINDINGS: Mild hallux valgus and bunion with mild hypertrophic change at the medial head of the first metatarsa l. Alignment is otherwise normal. No fracture. Mild osteoarthritis of the first metatarsophalangeal j oint. Moderate-sized plantar calcaneal and small Achilles calcaneal spurs. IMPRESSION: 1. Mild hallux valgus with mild bunion and mild osteoarthritis at the first metatarsophalangeal joint . 2. Calcaneal enthesophytes. Reviewed, dictated and finalized at location B. IMPRESSION: 1. Mild hallux valgus with mild bunion and mild osteoarthritis at the first met atarsophalangeal joint. 2. Calcaneal enthesophytes.
== END 2023-08-24 08:45 | disposition home or self-care (01) ==
PROVIDERS: PCP Physician Assistant; Visit Provider Physician Assistant
DX: M79.671 Pain in right foot (principal); M20.11 Hallux valgus (acquired), right foot; M21.611 Bunion of right foot; M19.071 Primary osteoarthritis, right ankle and foot; M77.31 Calcaneal spur, right foot
CPT/HCPCS: 73630